=== PATIENT | male | born 1940 | race Caucasian/White ===

== ENCOUNTER → 2017-12-02 09:12 | Outpatient (CLI) | payer MEDICARE, OTHER, SELFPAY ==
--- NOTE | 2017-12-02 10:00 | RAD_ITS ---
STUDY: AIR-CONTRAST UPPER GI STUDY. SMALL BOWEL FOLLOW-THROUGH STUDY REASON FOR EXAM: Male, 77 years old. Examination. SMA syndrome. FLUOROSCOPY TIME (if supplied): (1:01) minutes/seconds TECHNIQUE: Multiple barium swallows were performed under fluoroscopic monitoring. Multiple views of the esophagus, the stomach and the duodenum were performed. COMPARISON: None. AIR-CONTRAST UPPER GI FINDINGS: The esophagus is markedly enlarged consistent with achalasia. There is a small hiatal hernia. The stomach is normal in size shape and position the gastric mucosal folds are unremarkable. The duodenum and bulb is unremarkable. There is narrowing of the third part of the duodenum consistent with SMA syndrome. SMALL BOWEL FOLLOW-THROUGH FINDINGS: AUTOMATIC PACKER OPERATOR VIEW: The bowel gas pattern is unremarkable there is no evidence of free air in the abdomen. SMALL BOWEL FOLLOW-THROUGH: Normal progression of barium is seen throughout different parts of the small bowel the cecum is reached at approximately 60 minutes after barium ingestion. The duodenum, jejunum, and ileum mucosal pattern is unremarkable. Fluoroscopic examination of the terminal loop shows no abnormality. RAD/Upper GI/w Small Bowel IMPRESSION: Achalasia. Narrowing of the third part of the duodenum consistent with SMA syndrome. Electronically Signed: Cali Joyce MD at 12:43 EDT Tel , Service support ,
== END ==
PROVIDERS: Family Provider Family Medicine; PCP Family Medicine; Visit Provider Surgery
DX: K22.0 Achalasia of cardia (principal); K55.1 Chronic vascular disorders of intestine
CPT/HCPCS: 74249

== ENCOUNTER 2018-12-17 16:18 | Emergency (ER) | payer MEDICARE, OTHER, SELFPAY ==
[2018-12-17 16:19] VITALS: BP 158/71; PULSE 50; RESP 16; TEMP 36.3; O2SAT 100; BMI 24.8
--- NOTE | 2018-12-17 16:30 | ED.DCSUM_ITS ---
History of Present Illness Chief Complaint: Abn Labs Informant: Patient Onset: Today Associated Symptoms: no symptoms Narrative: Patient states he was seen in endocrinology because of issues with his thyroid and parathyroid, they did some blood work this morning and his potassium was high at 6.4 so they ordered him to go to the nearest emergency department by EMS as soon as possible. Patient states he has no symptoms. He has been urinating as normal, he does have chronic kidney disease from untreated hypertension for years although that is now treated. He is not on dialysis. - Past Medical History (1) Hypertension Status: Chronic (2) Chronic kidney disease Status: Chronic Past Medical History - Allergies and Home Meds Allergies/Adverse Reactions: Allergies Tetanus Vaccines and Toxoid Allergy (Verified 12/17/18 16:19) Hives Primary Care Physician: Ceci Morrow PA-C [Primary Care Provider] - Surgical History: - - Lower esophageal myotomy Smoking Status: Never smoker Drugs: None Review of Systems General: Denies: Chills, Fever, Sweats Eyes: Denies: Visual changes - bilaterally, Diplopia ENT: Denies: Rhinorrhea, Sore throat Cardiovascular: Denies: Chest pain, Palpitations Respiratory: Denies: Dyspnea, Cough, Dyspnea on exertion Gastrointestinal: Denies: Abdominal pain, Nausea, Vomiting, Diarrhea, Melena, Hematochezia Genitourinary: Denies: Dysuria, Hematuria, Frequency Musculoskeletal: Denies: Back pain, Swelling, Extremity Pain Skin: Denies: Rash, Wounds Neurological: Denies: Headache, Weakness, Numbness Physical Exam Vital Signs/Narrative: Vital Signs Temp Pulse Resp BP Pulse Ox 12/17/18 16:19 97.4 F L 50 L 16 158/71 H 100 Inital Vital Signs reviewed: Yes General: Well nourished, Well developed, No Acute Distress Head: Normocephalic, Atraumatic Eyes: Perrl, EOMI ENT: Moist mucous membranes, No rhinorrhea Neck: Supple, Nontender, No JVD Cardiovascular: Regular rate, Regular rhythm, No murmurs, Bradycardia - Borderline Respiratory: No distress, CTA bilaterally, Chest nontender Abdomen: Soft, Nontender, Nondistended, Normal bowel sounds Back: Nontender, Normal Inspection. Negative for: CVA tenderness Extremities: Nontender, No edema. Negative for: Calf Tenderness Skin: Normal color, No rash, No Trauma Neurological: Alert, Oriented x3, Cranial nerves II-XII grossly intact, Normal Strength, Normal Sensation, Normal Gait Psychological: Normal affect, Normal Mood Diagnostic/Tx/Re-eval Laboratory Tests 12/17/18 12/17/18 Range/Units 16:50 16:50 WBC 7.1 (4.4-11.0) K/mm3 RBC 4.33 L (4.6-6.2) M/mm3 Hgb 13.0 (13.0-16.5) g/dL Hct 38.6 L (40-54) % MCV 89.1 (80-94) fL MCH 30.0 (27.0-32.0) pg MCHC 33.7 (32-36) g/dL RDW Std Deviation 43.6 (35.1-43.9) fl RDW Coeff of Cristhian 13.4 (11.6-14.6) % Plt Count 272 (150-450) K/mm3 MPV 8.9 (6.2-12.0) fl Immature Gran % (Auto) 0.400 (0.0-0.9) % Neut % (Auto) 62.2 (47-70) % Lymph % (Auto) 23.9 (19-41) % [place] % (Auto) 8.8 (0-10) % Eos % (Auto) 3.7 (0-5) % Baso % (Auto) 1.0 (0-1) % Absolute Neuts (auto) 4.4 (2.0-7.7) X10^3/uL Absolute Lymphs (auto) 1.69 (0.83-4.51) X10^3/uL Nucleated RBC % 0 (0-5) % Sodium 141 (136-145) mmol/L Potassium 5.6 H (3.5-5.1) mmol/L Chloride 112 H (98-107) mmol/L Carbon Dioxide 23.0 (21.0-32.0) mmol/L Anion Gap 6 (5-15) BUN 48 H (7-18) mg/dL Creatinine 2.09 H (0.70-1.30) mg/dL Estim Creat Clear Calc 33.00 ml/min Est GFR (MDRD) Af Amer 40 L (>60) mL/min Est GFR (MDRD) Non-Af 33 L (>60) mL/min BUN/Creatinine Ratio 23.0 H (10-20) RATIO Glucose 88 (74-106) mg/dL Calcium 9.4 (8.5-10.1) mg/dL - Rhythm Strip Rhythm Strip: Sinus Rhythm Rate: 48 Ectopy: None - EKG Initial EKG Interpretation: Sinus Rhythm, No Acute Injury Pattern - Mild peaking of T waves in the precordial leads, all intervals normal, axis is left, no old available for comparison. No acute injury. Narrow QRS. Prior: No Prior - Medical Decision Making Potassium at 5.6, much lower than previously measured. Discussed with Dr. 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 He recommends a dose of Kayexalate, discontinue his lisinopril, and following up. Patient will call his PCP or go to the [facility] to get a repeat measurement within the next couple days. ED Disposition - Plan for ED Patient: Disposition: Home or Assisted Living Diagnosis: Hyperkalemia, diminished renal excretion, Chronic kidney disease Instructions: Hyperkalemia Referrals: Ceci Morrow PA-C [Primary Care Provider] - Glenda Starkey MD [STAFF PHYSICIAN] - As soon as possible Additional Instructions: Discontinue your lisinopril until told otherwise.
--- NOTE | 2018-12-17 16:30 | EKG12_ITS ---
Test Reason : Blood Pressure : / mmHG Vent. 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
[2018-12-17 16:59] LABS: Absolute Lymphocyte Count 1.69 X10^3/uL (0.83-4.51); Absolute Neutrophil Count 4.4 X10^3/uL (2.0-7.7); Basophil# 0.07 X10^3/uL; Eosinophil# 0.26 X10^3/uL; Eosinophils% 3.7 % (0-5); Hematocrit 38.6 % (40-54); Lymphocyte # 1.69 X10^3/ul (4.0); Lymphocyte % 23.9 % (19-41); Mean Corp Hgb Conc 33.7 g/dL (32-36); Mean Corpuscular Volume 89.1 fL (80-94); Mean Platelet Vol. 8.9 fl (6.2-12.0); Monocyte# 0.62 X10^3/uL; Monocyte% 8.8 % (0-10); NRBC Flagged by Analyzer 0 % (0-5); Neutrophil % 62.2 % (47-70); Platelet Count 272 K/mm3 (150-450); RBC Distribution Width CV 13.4 % (11.6-14.6); RBC Distribution Width SD 43.6 fl (35.1-43.9); Red Blood Count 4.33 M/mm3 (4.6-6.2); White Blood Count 7.1 K/mm3 (4.4-11.0)
[2018-12-17 17:15] LABS: Anion Gap 6 (5-15); BUN 48 mg/dL (7-18); Calcium,Total 9.4 mg/dL (8.5-10.1); Chloride 112 mmol/L (98-107); Creatinine, Serum 2.09 mg/dL (0.70-1.30); EST Glomerular Filtration Rate 33 mL/min (>60); Est Glom Filt Rate - Afr Amer 40 mL/min (>60); Glucose 88 mg/dL (74-106); Potassium 5.6 mmol/L (3.5-5.1); Sodium Level 141 mmol/L (136-145)
[2018-12-17 18:22] VITALS: PULSE 44; RESP 16
[2018-12-17] MEDS: Sodium Polystyrene Sulfonate 15 GM/60 ML UDC 30 GM PO (18:37)
== END 2018-12-17 18:39 | disposition home or self-care (01) ==
PROVIDERS: Emergency Provider Emergency Medicine; Family Provider Family Medicine; PCP Family Medicine
DX: E87.5 Hyperkalemia (principal); I12.9 Hypertensive chronic kidney disease with stage 1 through stage 4 chronic kidney disease, or unspecified chronic kidney disease; N18.9 Chronic kidney disease, unspecified; Z79.899 Other long term (current) drug therapy
CPT/HCPCS: 80048; 85025; 93005; 99285; A4216